=== PATIENT | male | born 1940 | race Caucasian/White ===

== ENCOUNTER 2024-03-22 20:10 | Inpatient (IN) | payer MEDICARE, BC, SELFPAY ==
[2024-03-22 17:42] VITALS: BP 142/75
[2024-03-22 18:07] LABS: % Basophils 0.5 % (0-2); % Eosinophils 2.4 % (0-6); % Immature Granulocytes 0.5 % (0-0.5); % Lymphocytes 11.9 % (20.5-51.1); % Monocytes 9.6 % (1.7-9.3); % Neutrophils 75.1 % (42.2-75.2); Absolute Basophils 0.1 10^3/uL (0-0.2); Absolute Eosinophils 0.3 10^3/uL (0-0.7); Absolute Immature Granulocytes 0.1 10^3/uL (0-0.05); Absolute Lymphocytes 1.3 10^3/uL (1.2-3.4); Absolute Monocytes 1.1 10^3/uL (0.1-0.6); Absolute Neutrophils 8.2 10^3/uL (1.4-6.5); Hematocrit 39.8 % (39.0-52.0); Hemoglobin 14.1 g/dL (13.0-18.0); Mean Corp Hgb Conc. 35.4 g/dL (33.0-37.0); Mean Corpuscular Hgb 30.9 pg (27.0-31.0); Mean Corpuscular Volume 87.1 fL (80.0-94.0); Mean Platelet Volume 11.4 fL (7.4-10.4); Nucleated Red Blood Cells % 0 % (-); Red Blood Cell Count 4.57 10^6/uL (4.70-6.10); Red Cell Dist. Width 12.7 % (11.5-14.5); White Blood Cell Count 10.9 10^3/uL (4.8-10.8)
[2024-03-22 18:15] LABS: ALT (SGPT) 20 U/L (0-50); AST (SGOT) 17 U/L (17-59); Alkaline Phosphatase 56 U/L (38-126); Blood Urea Nitrogen 87 mg/dl (9-20); Calcium 9.3 mg/dl (8.4-10.2); Carbon Dioxide 17 mmol/L (22-30); Chloride 101 mmol/L (98-107); Glucose 121 mg/dl (70-99); Lipase 271 U/L (23-300); Potassium 4.8 mmol/L (3.5-5.1); Sodium 137 mmol/L (135-145); Total Bilirubin 1.2 mg/dl (0.2-1.3); Total Protein 6.5 g/dl (6.3-8.2); eGFR 4.52
[2024-03-22 18:41] VITALS: BP 141/58; BMI 29.2
[2024-03-22 18:46] LABS: Platelet Count 126 10^3/uL (130-400)
--- NOTE | 2024-03-22 18:47 | EDRN ---
this RN entered the pts room and due to tenderness in the b/l lower abdomen this RN bladder scanned the pt for >800, this RN notified Dr. Ashley who gave an order to place an indwelling urinate catheter, the pt was combative and another PCT had to
be brought to the bedside to assist with catheter placement, the pt is resting in stretcher in the lowest position, side rails up x2, call ugalde within reach, HOB elevated, no s/s of distress, VS WNL, will continue to monitor the pt closely
--- NOTE | 2024-03-22 18:49 | EDRN ---
Dr. Ashley currently at the pts bedside and is speaking to the pt and the pts daughter, per Dr. Ashley b/l soft wrist restraints are to be placed
--- NOTE | 2024-03-22 18:49 | EDRN ---
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
--- NOTE | 2024-03-22 18:51 | EDRN ---
b/l soft wrist restraints were placed and are effective, provider notified that they were placed, the pts daughter understands the reasoning for placing b/l soft wrist restraints, charge nurse notified
[2024-03-22 19:00] VITALS: BP 143/61
--- NOTE | 2024-03-22 19:27 | ED.GENMED ---
History of Present Illness
General
Chief Complaint: Male Genito-Urinary Symptoms
Source: family
Time Seen by Provider: 03/22/24 18:38
History of Present Illness
History of Present Illness:
83-year-old male presents to the emergency room due to lack of urinary output. Patient has dementia and so family has difficulty getting information from him. They did note that he was having incontinence of urine that was abnormally colored. No
known fever. Daughter states the patient had blood work recently and was told his kidney function was a little bit off. They do not know any numbers. However it did not seem to be anything serious in the daughter's estimation. Patient unable to
provide any history at this time.
Phy Exam
Physical Exam
Physical Exam:
General: Awake, Alert, Oriented to person only. No acute distress
Vitals: unremarkable
Head: Atraumatic
Eyes: Pupils equal, EOMI
Throat: Airway intact, no exudates
Neck: Trachea midline
Lungs: Clear and equal b/l
Heart: Regular rate, no murmurs
Abd: Soft, suprapubic fullness, No pulsatile mass
Neuro: Nonfocal
Skin: Warm, dry, no rash
Extremities: pulses equal b/l, no edema
Course
Orders/Labs/Results
Orders:
Orders
03/22/24 17:49
CBC/With Diff [Complete Blood Count/With Diff] Urgent
CMP [Comprehensive Metabolic Panel] Urgent
Lipase Urgent
03/22/24 18:39
Farooq Placement- Treatment ONCE
Reason for insertion: Acute Retention
Catheter- Indwelling As Directed
Reason for insertion: Acute Retention
Discontinue Date/Time: 03/25/24 0600
03/22/24 18:49
Restraints - Non Violent As Directed
Justification-Patient:: 1-Attempts to remove tube
Restraint Type-: Soft Limb-L&R Wrist/4rail
Apply From (date): 03/22/24
Apply from (time): 18:49
Remove (date): 03/23/24
Remove (time): 23:59
03/22/24 19:31
Urinalysis Reflex To Culture Urgent
Date Specimen was Collected: 03/22/24
Time Specimen was Collected: 19:29
Urine Microscopic Reflex Cult Urgent
03/22/24 19:51
Abdomen/Pelvis wo Contrast CT [CT Abd/pelvis Wo Iv Cont] Urgent
Comment:
Reason For Exam: urinary retention, hematuria
03/22/24 19:55
Admit/Transfer Patient As Directed
Co-Sign Provider:
Level of Care: Inpatient admission
Assign to:: Medical/Surgical
Physician / Group: jossie
Diagnosis: postobstructie uropathy
Reason for Hospitalization: postobstructie uropathy
Expected length of stay greater than two midnights?: Yes
ELOS- Estimated Length of Stay in days: 2
I certify the patient meets the requirements for IP care: Yes
PRN Pain Medication Management As Directed
May give lesser potent ordered pain med per pt: Yes
preference::
Protocol:: Medication orders for pain may be administered in a
manner that supports deferring to patient preference
when the pt is:
- Requesting an ordered lesser potent pain medication.
Least to most potent pain medications are defined
as: acetaminophen < NSAID < tramadol < opioids
(morphine, oxycodone, hydromorphone).
- Requesting a lesser dose of the same medication IF
ORDERED.
- Requesting a less intrusive route of administration
if both routes are prescribed by the provider (PO <
IV).
03/22/24 19:56
Code Status As Directed
Resuscitation Status: Full Code
Abnormal Lab Results
03/22/24 03/22/24
17:49 19:31
WBC 10.9 H 10^3/uL
(4.8-10.8)
RBC 4.57 L 10^6/uL
(4.70-6.10)
Plt Count 126 L 10^3/uL
(130-400)
MPV 11.4 H fL
(7.4-10.4)
Abs Immat Gran (auto) 0.1 H 10^3/uL
(0-0.05)
Absolute Neuts (auto) 8.2 H 10^3/uL
(1.4-6.5)
Absolute Monos (auto) 1.1 H 10^3/uL
(0.1-0.6)
Lymphocytes % 11.9 L %
(20.5-51.1)
Monocytes % 9.6 H %
(1.7-9.3)
Carbon Dioxide 17 L mmol/L
(22-30)
BUN 87 H mg/dl
(9-20)
Creatinine 10.4 H* mg/dL
(0.7-1.3)
Glucose 121 H mg/dl
(70-99)
Urine Ketones Trace A
(Negative)
Ur Occult Blood Reflex 3+ A
(Negative)
Urine Bilirubin 1+ A
(Negative)
Leukocyte Esterase Rfl Trace A
(Negative)
Urine RBC 16-20 A /HPF
(0-2)
03/22/24 17:49
03/22/24 17:49
Vital Signs
Initial and Last Documented VS:
Initial Vital Signs
Temp Pulse Resp BP Pulse Ox
97.6 F 75 18 142/75 96
03/22/24 17:42 03/22/24 17:42 03/22/24 17:42 03/22/24 17:42 03/22/24 17:42
Last Documented Vital Signs
Temp Pulse Resp BP Pulse Ox
98.5 F 71 16 141/58 99
03/22/24 18:41 03/22/24 18:45 03/22/24 18:45 03/22/24 18:41 03/22/24 18:45
MDM/Problems Addressed
Differential Diagnosis Includes:
bladder outlet obstruction, uti, kidney stone
MDM/Problems Addressed:
Bladder scan showed significant urinary retention. A Farooq catheter was placed with the return of 1000 cc of blood-tinged urine. Patient's labs show a white count of 10.9. He is creatinine is 10.4. BUN 87. Fortunately his potassium is normal at
4.8. His bicarb is mildly low at 17 with an anion gap of 19. I suspect now that his bladder outlet obstruction has been alleviated the patient's renal function will likely improve. He will require hospitalization to monitor for this. Patient
does have dementia and is attempting to pull out his catheter. Will place soft restraints to prevent this. Daughter also states is about time for his Seroquel which typically makes him sleep through the night.
*Pulse Oximetry
Patient hypoxic: no
*Critical Care Note
Total Time (30-74mins, 75-104mins- exclusive of procedures): Not Applicable
ED Attending Note
-
Portions of this chart may have been created with voice recognition software.� Occasional wrong word or��sound alike� substitutions may have occurred due to the inherent limitations of voice recognition software.
Discharge Plan
Departure
Patient Disposition: Admit
Date of Disposition: 03/22/24
Time of Disposition: 19:33
Admit to: Med/Surg
Presentation/result/management discussed w/ accepting MD/DO: Hospitalist
Condition: Fair
Discharge Problem:
Bladder outlet obstruction, Acute renal failure (ARF)
Prescriptions:
No Action
quetiapine 100 mg Tablet
100 mg PO QPM
lorazepam 0.5 mg Tablet
0.5 mg PO DAILYPRN PRN (Reason: anxiety)
Interventions
Interventions:
*Risk Screen - Suicide Last Done: 03/22/24 18:41
*General Assessment Last Done: 03/22/24 18:41
*Neglect/Abuse Screening Last Done: 03/22/24 18:41
ED- Fall Risk Assessment Last Done: 03/22/24 18:41
*ED COVID-19 Vaccine History Last Done: 03/22/24 18:41
II-Bukpit-Sizyueyewf Assessment Last Done: 03/22/24 18:41
ED-Male Genitourinary Assessment Last Done: 03/22/24 18:41
Discharge Date and Time
Print Language: PERSIAN
[2024-03-22 19:38] LABS: Urine Albumin Trace (Neg - Trace); Urine Bilirubin 1+ (Negative); Urine Character Clear (Clear); Urine Color Amber; Urine Glucose Negative (Negative); Urine Ketone Trace (Negative); Urine Leukocyte Trace (Negative); Urine Nitrite Negative (Negative); Urine Occult Blood 3+ (Negative); Urine Urobilinogen Negative (Neg - 1+)
[2024-03-22 19:49] LABS: Urine Red Blood Cell 16-20 /HPF (0-2)
--- NOTE | 2024-03-22 19:52 | HPS.HSE ---
Family Physician
-
Family Physician: PHYSICIAN PRIVATE
Chief Complaint
-
inability to urinate
History of Present Illness
83-year-old male past medical history of aortic valve replacement 7 years ago, dementia, hypertension, hypercholesterolemia, presenting with weakness, worsening confusion, incontinence and inability to urinate today. History is obtained from
daughter because patient has severe dementia.
Patient was complaining of abdominal pain and has had decreased urinary output today. No nausea or vomiting. No fevers or chills.
Patient was previously living in [place] with a visiting nurse but due to worsening cognitive decline he has come to live with his daughter here. Daughter is considering hospice and placement to nursing homes.
He had blood work this past December which showed elevated creatinine.
Patient does see an outpatient urologist yearly for erectile dysfunction although daughter does not know any further details. No history of kidney stones.
Patient was drinking alcohol most days but he has not had any alcohol to drink in 1 week. No smoking or drug use.
Patient's brother had colon cancer.
Medical History
Past Medical History
Past Medical History: Reports Other (aortic valve replacement 7 years ago, dementia, hypertension, hypercholesterolemia)
Past Surgical History: Reports Other (AVR )
Social History
Tobacco: Non-smoker
Alcohol: Occasional
Drug: None
Family History
Family History: Other (brother had colon cancer.)
Allergies / Home Medications
Allergies reflects when Allergies were last updated in [employer].
Home Medications with original date entered in [employer]
Allergy/Medication List:
Allergies
Allergy/AdvReac Type Severity Reaction Status Date / Time
No Known Allergies Allergy Verified 03/22/24 17:45
Review of Systems
-
History Source: Patient
A 12 point ROS was completed and negative except as noted: Yes
Constitutional: Reports No Symptoms
EENT: Reports No Symptoms
Respiratory: Reports No Symptoms
Cardiac: Reports No Symptoms
Abdomen/GI: Reports See HPI
: Reports See HPI
Musculoskeletal: Reports No Symptoms
Skin: Reports No Symptoms
Neurological: Reports No Symptoms
Endocrine: Reports No Symptoms
Hematologic/Lymphatic: Reports No Symptoms
Psych: Reports No Symptoms
Physical Exam
Vital Signs
Vital Signs
Temp Pulse Resp BP Pulse Ox
98.5 F 71 16 141/58 99
03/22/24 18:41 03/22/24 18:45 03/22/24 18:45 03/22/24 18:41 03/22/24 18:45
Physical Exam
General: Well Developed, Well Nourished and No Apparent Distress
HEENT: NormoCephalic, Moist mucous membranes and Atraumatic
Respiratory: Clear
Cardiac: S1/S2 and Regular Rhythm; No Murmur or Rub
GI: Soft, Non Tender, Non Distended and Normal Bowel Sounds; No Organomegaly
Rectal: Deferred by Provider
Musculoskeletal: No Clubbing, No Cyanosis and No Edema
Skin: No Rash
Neuro: Nonfocal/grossly intact
Laboratory Results
-
03/22/24 17:49
03/22/24 17:49
Laboratory Results
Total Bilirubin 1.2 mg/dl (0.2-1.3) 03/22/24 17:49
AST 17 U/L (17-59) 03/22/24 17:49
ALT 20 U/L (0-50) 03/22/24 17:49
Alkaline Phosphatase 56 U/L (38-126) 03/22/24 17:49
Lipase 271 U/L (23-300) 03/22/24 17:49
Data Reviewed
-
Lab Data: Labs Reviewed by me
Old Records: Reviewed
Impression/Plan
-
IMPRESSION:
PLAN:
# Postobstructive DIANN with hematuria secondary to bladder outlet obstruction
# Uremic encephalopathy
-Farooq placed with 1000 cc of bloody urine
-Creatinine of 10.4
-IV fluids with LR as per nephro
-Urinalysis not suggesting UTI
-Check CT abdomen pelvis
History of aortic valve replacement
Dementia with agitation
-Continue Seroquel
-Patient with soft restraints
Essential hypertension
Hypercholesterolemia
DNR/DNI
DVT prophylaxis�SCDs
Regular diet
[2024-03-22 21:01] VITALS: BP 143/61
[2024-03-22 21:32] VITALS: BP 146/70
[2024-03-22] MEDS: LR 1000 IV (21:55)
[2024-03-22] MEDS: NSS (PRESERVATIVE FREE) 0.25 ML IV (22:31)
[2024-03-22] MEDS: ATIVAN 0.5 MG IV (22:32)
--- NOTE | 2024-03-23 01:33 | PTCARENOTE ---
Patient admitted to floor with order for B/L soft wrist restraints & 4 bed rails. Daughter and son-in-law at bedside. Patient responds to name and able to state partial (not year). Patient is agitated and very restless. Daughter requests to stay
at bedside overnight. Farooq placed in ED for acute retention. No signs of hematuria at this time. Will continue to monitor. Completed admission with daughter. Patient is a DNR. Daughter provided copy of health care surrogate and RN printed for
chart. Notified Disha Gore [employer]. Also patient drinks 3-4 times daily; however last drink was Monday03/16/24. MSAS intervention was added q1h per protocol. Notified [employer] again. Discontinued intervention and will continue to monitor for any signs of
withdrawal and/or DT.
[2024-03-23] MEDS: HALDOL 1 MG IM ×2 (04:07→20:49)
[2024-03-23] MEDS: LR 1000 IV ×2 (06:09→15:03)
[2024-03-23 07:00] VITALS: BP 145/69
[2024-03-23 07:43] LABS: ALT (SGPT) 17 U/L (0-50); AST (SGOT) 17 U/L (17-59); Albumin 3.3 g/dl (3.5-5.0); Alkaline Phosphatase 49 U/L (38-126); Blood Urea Nitrogen 55 mg/dl (9-20); Calcium 9.1 mg/dl (8.4-10.2); Carbon Dioxide 22 mmol/L (22-30); Chloride 107 mmol/L (98-107); Estimated Creatinine Clearance 17 ml/min; Glucose 101 mg/dl (70-99); Potassium 4.1 mmol/L (3.5-5.1); Sodium 141 mmol/L (135-145); Total Bilirubin 1.2 mg/dl (0.2-1.3); Total Protein 5.7 g/dl (6.3-8.2)
[2024-03-23 07:51] LABS: % Basophils 0.6 % (0-2); % Eosinophils 3.5 % (0-6); % Immature Granulocytes 0.4 % (0-0.5); % Lymphocytes 14.5 % (20.5-51.1); % Monocytes 11.4 % (1.7-9.3); % Neutrophils 69.6 % (42.2-75.2); Absolute Eosinophils 0.3 10^3/uL (0-0.7); Absolute Monocytes 0.8 10^3/uL (0.1-0.6); Hematocrit 36.2 % (39.0-52.0); Hemoglobin 12.8 g/dL (13.0-18.0); Mean Corp Hgb Conc. 35.4 g/dL (33.0-37.0); Mean Corpuscular Hgb 30.9 pg (27.0-31.0); Mean Corpuscular Volume 87.4 fL (80.0-94.0); Mean Platelet Volume 11.4 fL (7.4-10.4); Nucleated Red Blood Cells % 0 % (-); Platelet Count 116 10^3/uL (130-400); Red Blood Cell Count 4.14 10^6/uL (4.70-6.10); Red Cell Dist. Width 12.4 % (11.5-14.5); White Blood Cell Count 7.2 10^3/uL (4.8-10.8)
--- NOTE | 2024-03-23 09:11 | W.PN.HOSP.TC ---
Today's Communication/Plan
-
see A/P
Assessment / Plan
Assessment / Plan
HPI: 83-year-old male past medical history of aortic valve replacement 7 years ago, dementia, hypertension, hypercholesterolemia, p/w weakness, worsening confusion, incontinence and inability to urinate. History was obtained from daughter because
patient has severe dementia.
Patient was complaining of abdominal pain and has had decreased urinary output.
Patient was previously living in [place] with a visiting nurse but due to worsening cognitive decline, he has come to live with his daughter here. Daughter is considering hospice and placement to nursing homes.
He had blood work this past December which showed elevated creatinine.
Patient does see an outpatient urologist yearly for erectile dysfunction although daughter does not know any further details. No history of kidney stones.
Patient was drinking alcohol most days but he has not had any alcohol to drink in 1 week. No smoking or drug use.
CT AP:
2 nephroliths within the left kidney. No evidence for ureteral calculus bilaterally.
Jasso catheter is present within a collapsed bladder. There is enlargement of the prostate gland extending into the base of the bladder.
Mild to moderate prominence of the calyces, renal pelves, and ureters bilaterally, with no evidence for ureteral calculus. This may possibly be due to the enlarged prostate gland, and could be a chronic finding.
Cholelithiasis. No CT findings to suggest acute cholecystitis.
Mild fatty infiltration of the liver.
Mild splenomegaly.
8 mm mass arising in the left adrenal gland, most likely an adenoma. In an 83-year-old, no further imaging follow-up is felt to be needed.
Colonic diverticula with no CT evidence for diverticulitis.
A/P:
# Postobstructive DIANN with hematuria secondary to severe bladder outlet obstruction from BPH
# Uremic encephalopathy
Cont Jasso which was placed on admission
SCr improved from 10.4 on admission to 3.4 today, baseline 1.3 from November 2023; cont to monitor SCr
Cont IV fluids with LR to ameliorate postobstructive diuresis
Add Flomax , Proscar
Urinalysis not suggesting UTI
CT abdomen pelvis report as above
For now, pt would need to keep jasso (family is concerned that pt would not be able to keep jasso due to his severe dementia) unless family elect hospice route
Uro CS
# History of aortic valve replacement
# Severe Dementia with agitation
Continue BAND SPLITTER Seroquel HS, BAND SPLITTER Ativan PRN
Haldol PRN for severe agitation
Cont soft restraints
# Essential hypertension
BP acceptable , not on BP med at home
# Hypercholesterolemia
DNR/DNI
DVT prophylaxis�SCDs
Regular diet
DW daughter at NATHAN at bedside. Extensive discussion including GOC.
total time spent 51 min
Anticipated Discharge: 24 - 48 hours
Subjective/Interval History
-
Date of Service: March 23, 2024
Objective Data
-
Labs:
Laboratory Results
03/23/24
06:28
WBC 7.2
Hgb 12.8 L
Hct 36.2 L
Plt Count 116 L
Sodium 141
Potassium 4.1
Chloride 107
Carbon Dioxide 22
BUN 55 H
Creatinine 3.4 H
Glucose 101 H
Calcium 9.1
Total Bilirubin 1.2
AST 17
ALT 17
Alkaline Phosphatase 49
Vital Signs:
Vital Signs
Temp Pulse Resp BP Pulse Ox
36.6 C 69 18 145/69 97
03/23/24 07:00 03/23/24 07:00 03/23/24 07:00 03/23/24 07:00 03/23/24 07:00
I&O
03/22/24 03/23/24 03/24/24
06:59 06:59 06:59
Output Total 2375 / 2375 1000 / 1000
Balance -2375 / -2375 -1000 / -1000
Review of Systems
-
Unable to obtain full review of systems at this time due to: Dementia
Physical Exam
-
General: Well Developed, Well Nourished, No Apparent Distress and Comfortable; Negative Respiratory Distress
HEENT: Normocephalic, Atraumatic, Nose Appears Normal and Ears Appear Normal; Negative Oxygen
Respiratory: Clear to Auscultation and Non Labored Respirations; Negative Accessory Resp Muscle Use
Cardiac: Regular Rhythm and S1/S2
GI: Soft, Nontender, Nondistended and Normal Bowel Sounds
Genito-urinary: Jasso
Skin: Warm and Dry
Neuro: Awake and Alert
Psych: Calm and Apparent Dementia
Data Reviewed
-
CT Scan: Report Reviewed by me
Labs: Labs Reviewed by me
--- NOTE | 2024-03-23 10:00 | PTCARENOTE ---
Family at bedside, but not assisting patient with breakfast. RN set up and assisted patient with breakfast. Patient needs frequent cues. Patient ate 100% of meal and was quite pleasant and cooperative.
[2024-03-23] MEDS: FLOMAX 0.4 MG PO (10:06)
[2024-03-23] MEDS: PROSCAR 5 MG PO (10:06)
--- NOTE | 2024-03-23 11:23 | CONS.URO ---
Consultation
-
Date/Time Consultation Performed: 03/23/24 1100
Performing Provider: Wilbert
Reason for Consultation: BPH with AUR and Obstructive Nephropathy
Medical History
History of Present Illness
Elderly male presented to ED with worsening confusion and weakness as well as inability to void; Farooq placed in ED for ~ 1 L
Past Medical History
Past Medical History: Other (Dementia, aortic valve replacement 7 years ago, hypertension, hypercholesterolemia)
Social History
Unable to obtain full social history at this time due to: Dementia
Tobacco: Non-smoker
Living: With Family
Employment: Not Employed
Family History
Family History: Reviewed & Not Pertinent
Allergies/Home Medications
Allergies
Allergy/AdvReac Type Severity Reaction Status Date / Time
No Known Allergies Allergy Verified 03/22/24 17:45
Home Medications
�Medication �Instructions �Recorded �Confirmed �Type
lorazepam 0.5 mg tablet 0.5 mg PO DAILYPRN PRN anxiety 03/22/24 03/22/24 History
quetiapine 100 mg tablet 100 mg PO QPM 03/22/24 03/22/24 History
Physical Exam
Vital Signs
Vital Signs
Temp Pulse Resp BP Pulse Ox
97.9 F 69 18 145/69 97
03/23/24 07:00 03/23/24 07:00 03/23/24 07:00 03/23/24 07:00 03/23/24 07:00
Lab / Testing Results
Laboratory Results
03/23/24 06:28
03/23/24 06:28
Physical Exam
adult male in bed being spoon fed
awake but not conversant
General: No Apparent Distress
Genito-urinary: Farooq Catheter (ania urine)
Data Reviewed
-
CT Scan: Image personally visualized and interpreted
Lab Data: Labs Reviewed
Old Records: Reviewed
--- NOTE | 2024-03-23 11:28 | CONS.URO ---
Consultation
-
Date/Time Consultation Performed: 03/23/24 11 AM
Medical History
History of Present Illness
presented to ED with confusion, weakness and inability to void
Farooq placed in ED for ~ 1 L
Past Medical History
Past Medical History: Other (aortic valve replacement 7 years ago, dementia, hypertension, hypercholesterolemia)
Social History
Unable to obtain full social history at this time due to: Dementia
Living: With Family
Employment: Not Employed
Family History
Family History: Reviewed & Not Pertinent
Allergies/Home Medications
Allergies
Allergy/AdvReac Type Severity Reaction Status Date / Time
No Known Allergies Allergy Verified 03/22/24 17:45
Home Medications
�Medication �Instructions �Recorded �Confirmed �Type
lorazepam 0.5 mg tablet 0.5 mg PO DAILYPRN PRN anxiety 03/22/24 03/22/24 History
quetiapine 100 mg tablet 100 mg PO QPM 03/22/24 03/22/24 History
Physical Exam
Vital Signs
Vital Signs
Temp Pulse Resp BP Pulse Ox
97.9 F 69 18 145/69 97
03/23/24 07:00 03/23/24 07:00 03/23/24 07:00 03/23/24 07:00 03/23/24 07:00
Lab / Testing Results
Laboratory Results
03/23/24 06:28
03/23/24 06:28
Physical Exam
elderly male being spoon fed
General: No Apparent Distress
GI: Non Distended
Genito-urinary: Farooq Catheter (ania urine)
Assessment / Plan
-
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
d/w son-in-law at bedside
Rec:
keep Farooq
Finasteride
possible TURP in several weeks
Data Reviewed
-
CT Scan: Image personally visualized and interpreted
Lab Data: Labs Reviewed
Old Records: Reviewed
--- NOTE | 2024-03-23 12:28 | CM ---
Patient seen bedside with son in law, Bruno, initial assessment completed by Bruno, patient not responding to assessment questions. Bruno reports patient does not typically use any device or DME at home, denies VN or SNF history. Unsure of patients
PCP, patients daughter will know and is coming to Hospital shortly. Patient pharmacy [facility], confirms prescription coverage.
CM spoke with Bruno in the hallway, Bruno reports patient is currently staying with himself and his (patients daughter, Jes Pollock) until . Bruno reports patients caregiver is on vacation so patient is staying with them. Bruno reports
patient comes to [place] in the [place], patients other daughter and family live in the front of the home, patient resides in the back of the home. Bruno reports patient lives in [place] when not visiting, caregiver lives with patient in [place], came
with patient to [place] for summer. Bruno reports family has been looking into Memory Care in [place] for when patient eventually returns. Bruno reports patient is verbal with family. TT to Hospitalist for PT/OT orders. CM will continue to follow for all
discharge planning needs.
Plan; will depend on PT/OT evals, medical treatment in hospital.
[2024-03-23 15:00] VITALS: BP 151/69
--- NOTE | 2024-03-23 16:15 | PTCARENOTE ---
Patient OOB in chair with soft limb restraints maintained. Patient becoming agitated and taking off restraints with his teeth and cursing at his daughter. Daughter was taking pictures and video of patient. Physician made aware, order obtained to
give 1800 Seroquel now.
[2024-03-23] MEDS: SEROQUEL 100 MG PO (16:35)
--- NOTE | 2024-03-23 17:00 | PTCARENOTE ---
Patient assisted back to bed with assist x3, due to patient being uncooperative and combative. Patient back in bed, restraints re applied, bed alarm maintained. Daughter at bedside and expressing he should be placed on hospice due to his confusion
and behavior. Patient's daughter asked RN multiple times for opinion on whether patient should be on hospice. RN explained that patient is 'sun downing' at present and it might be temporary and RN cannot make decision on whether patient should be on
hospice.
--- NOTE | 2024-03-23 19:05 | PTCARENOTE ---
Patient's daughter requesting Haldol be given to her father. Patient is sleeping at present, RN informed daughter that it would be the evening RN's decision whether the patient will need Haldol overnight. Daughter states, 'He was just awake and
agitated.' RN not comfortable giving Haldol at present as patient is sleeping soundly.
[2024-03-23 23:00] VITALS: BP 141/89
[2024-03-24] MEDS: LR 1000 IV ×2 (00:31→08:34)
[2024-03-24 07:20] VITALS: BP 149/73
[2024-03-24 08:30] LABS: Blood Urea Nitrogen 21 mg/dl (9-20); Calcium 8.6 mg/dl (8.4-10.2); Carbon Dioxide 27 mmol/L (22-30); Chloride 107 mmol/L (98-107); Estimated Creatinine Clearance 59 ml/min; Glucose 109 mg/dl (70-99); Magnesium 1.5 mg/dl (1.6-2.3); Potassium 4.1 mmol/L (3.5-5.1); Sodium 142 mmol/L (135-145); eGFR > 60.00
[2024-03-24] MEDS: PROSCAR 5 MG PO (08:30)
[2024-03-24] MEDS: FLOMAX 0.4 MG PO (08:30)
[2024-03-24 08:37] LABS: Hematocrit 34.8 % (39.0-52.0); Hemoglobin 12.6 g/dL (13.0-18.0); Mean Corp Hgb Conc. 36.2 g/dL (33.0-37.0); Mean Corpuscular Hgb 31.3 pg (27.0-31.0); Mean Corpuscular Volume 86.4 fL (80.0-94.0); Mean Platelet Volume 11.4 fL (7.4-10.4); Platelet Count 121 10^3/uL (130-400); Red Blood Cell Count 4.03 10^6/uL (4.70-6.10); Red Cell Dist. Width 12.2 % (11.5-14.5); White Blood Cell Count 6.1 10^3/uL (4.8-10.8)
--- NOTE | 2024-03-24 09:08 | W.PN.HOSP.TC ---
Today's Communication/Plan
-
see A/P
Assessment / Plan
Assessment / Plan
HPI: 83-year-old male past medical history of aortic valve replacement 7 years ago, dementia, hypertension, hypercholesterolemia, p/w weakness, worsening confusion, incontinence and inability to urinate. History was obtained from daughter because
patient has severe dementia.
Patient was complaining of abdominal pain and has had decreased urinary output.
Patient was previously living in [place] with a visiting nurse but due to worsening cognitive decline, he has come to live with his daughter here. Daughter is considering hospice and placement to nursing homes.
He had blood work this past December which showed elevated creatinine.
Patient does see an outpatient urologist yearly for erectile dysfunction although daughter does not know any further details. No history of kidney stones.
Patient was drinking alcohol most days but he has not had any alcohol to drink in 1 week. No smoking or drug use.
CT AP:
2 nephroliths within the left kidney. No evidence for ureteral calculus bilaterally.
Jasso catheter is present within a collapsed bladder. There is enlargement of the prostate gland extending into the base of the bladder.
Mild to moderate prominence of the calyces, renal pelves, and ureters bilaterally, with no evidence for ureteral calculus. This may possibly be due to the enlarged prostate gland, and could be a chronic finding.
Cholelithiasis. No CT findings to suggest acute cholecystitis.
Mild fatty infiltration of the liver.
Mild splenomegaly.
8 mm mass arising in the left adrenal gland, most likely an adenoma. In an 83-year-old, no further imaging follow-up is felt to be needed.
Colonic diverticula with no CT evidence for diverticulitis.
A/P:
# Postobstructive DIANN with hematuria secondary to severe bladder outlet obstruction from BPH
# Uremic encephalopathy
Cont Jasso which was placed on admission
SCr improved from 10.4 on admission to 1.0 today; baseline SCr 1.3 from November 2023
cont to monitor SCr
s/p IV fluid
Added Flomax , Proscar
Urinalysis not suggesting UTI
CT abdomen pelvis report as above
For now, would highly recc pt to keep jasso (family has concern that pt would not be able to keep jasso due to his severe dementia).
GOC discussed and family considering hospice. Hospice CS.
Appreciate Uro input, agree with jasso
# Hypomagnesemia
replete with IV Mag
# History of aortic valve replacement
# Severe Dementia with agitation
Pt is awake but not orientated
Continue DISPLAY MAKER Seroquel HS, DISPLAY MAKER Ativan PRN
IM Haldol PRN for severe agitation (daughter prefers Haldol over Ativan)
soft restraints as needed
# Essential hypertension
BP acceptable , not on BP med at home
# Hypercholesterolemia
DNR/DNI
DVT prophylaxis�SCDs
Regular diet
DW daughters and NATHAN in person. Extensive discussion involving GOC.
Family would like hospice eval. Hospice CS placed.
Anticipated Discharge: > 48 hours
Subjective/Interval History
-
Date of Service: March 24, 2024
Objective Data
-
Labs:
Laboratory Results
03/24/24
07:34
WBC 6.1
Hgb 12.6 L
Hct 34.8 L
Plt Count 121 L
Sodium 142
Potassium 4.1
Chloride 107
Carbon Dioxide 27
BUN 21 H
Creatinine 1.0
Glucose 109 H
Calcium 8.6
Vital Signs:
Vital Signs
Temp Pulse Resp BP Pulse Ox
36.8 C 66 14 149/73 98
03/24/24 07:20 03/24/24 07:20 03/24/24 07:20 03/24/24 07:20 03/24/24 07:20
I&O
03/23/24 03/24/24 03/25/24
06:59 06:59 06:59
Intake Total 1380 / 1380 1440 / 1440
Output Total 2375 / 2375 3000 / 3000 1575 / 1575
Balance -2375 / -2375 -1620 / -1620 -135 / -135
Review of Systems
-
Unable to obtain full review of systems at this time due to: Dementia
Physical Exam
-
General: Well Developed, Well Nourished, No Apparent Distress and Comfortable; Negative Respiratory Distress
HEENT: Normocephalic, Atraumatic, Nose Appears Normal and Ears Appear Normal; Negative Oxygen
Respiratory: Clear to Auscultation and Non Labored Respirations; Negative Accessory Resp Muscle Use
Cardiac: Regular Rhythm and S1/S2
GI: Soft, Nontender, Nondistended and Normal Bowel Sounds
Genito-urinary: Jasso
Skin: Warm and Dry
Neuro: Awake and Alert
Psych: Calm and Apparent Dementia
Data Reviewed
-
CT Scan: Report Reviewed by me
Labs: Labs Reviewed by me
[2024-03-24] MEDS: MAGNESIUM SULFATE 50 IV (09:49)
--- NOTE | 2024-03-24 11:41 | HOSPNOTE ---
Called the patients daughter to speak to her about Hospice services. No answer. Phone number was given for a return call.
--- NOTE | 2024-03-24 12:15 | PTCARENOTE ---
At noon pt is very agitated, tries to pull his Farooq catheter regardless of being in bilateral upper wrist restraints, pt is still able to reach the Farooq. IM Haldol administered. No immediate effect, but after about 2hrs pt is pleasant and resting
in bed peacefully. Will continue to monitor.
[2024-03-24] MEDS: HALDOL 1 MG IM (12:19)
--- NOTE | 2024-03-24 12:46 | HOSPNOTE ---
Spoke with the patients adult children via phone. Hospice philosophy and services were explained. They were informed that the patient does not meet GIP criteria at this time. They state he may return to his [facility] [place]. They are
agreeable to meeting with the liaison planner monday.
--- NOTE | 2024-03-24 13:05 | W.PN.URO.CBU ---
Today's Communication / Plan
-
Rec:
keep Farooq
Finasteride
possible TURP in several weeks
Assessment / Plan
-
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
Diagnosis
-
Date of Service: March 24, 2024
-
Patient Diagnosis:
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
Objective
-
Vital Signs
Temp Pulse Resp BP Pulse Ox
98.3 F 66 14 149/73 98
03/24/24 07:20 03/24/24 07:20 03/24/24 07:20 03/24/24 07:20 03/24/24 07:20
Intake and Output
03/23/24 03/24/24 03/25/24
06:59 06:59 06:59
Intake Total 1380 / 1380 1440 / 1440
Output Total 2375 / 2375 3000 / 3000 1575 / 1575
Balance -2375 / -2375 -1620 / -1620 -135 / -135
Intake:
Oral fluids 580 / 580 120 / 120
IV fluids (Total) 800 / 800 1320 / 1320
Output:
Urine, Farooq 575 / 575 3000 / 3000 1575 / 1575
Urine, Voided 1800 / 1800
Laboratory Results
03/24/24 07:34
03/24/24 07:34
Physical Exam
-
General - well developed, well nourished, no acute distress
Chest - clear bilaterally
Abdomen - soft, non-tender, positive bowel sounds, no CVAT, no incisional pain or distention
Genitalia - normal
Rectal - normal
Skin - warm & dry with no rash
Neuro - AOx3, no motor deficits
Extremities - no clubbing, no cyanosis, no edema
Incision - clean, dry
Dressing - clean, dry, intact
--- NOTE | 2024-03-24 14:14 | W.PN.UPDATE ---
Update Note
Progress Note Update
Extensive discussion with family in person.
Family would like the Farooq out given it is causing severe agitation to the patient, and family is concerned that the patient will traumatically remove the Farooq once his restraint is removed (understandable).
Hospice was consulted given patient would likely develop uremic encephalopathy and kidney failure if Farooq is removed.
Hospice nurse discussed case with Dr Farrell. Per Dr Farrell, pt does not meet criteria for GIP currently.
At this point, could consider starting comfort measures when Farooq is removed (as requested by family).
Family is aware that once Farooq is removed, patient's urinary retention will result in severe acute kidney injury and uremic encephalopathy. This will result in .
Family will inform the hospitalist team when they are ready to have the Farooq removed.
When that happens, would consider initiating comfort measures.
[2024-03-24 15:05] VITALS: BP 151/80
[2024-03-24] MEDS: SEROQUEL 100 MG PO (17:01)
[2024-03-24] MEDS: TYLENOL 650 MG PO (19:44)
[2024-03-24 23:04] VITALS: BP 126/66
[2024-03-25] MEDS: HALDOL 1 MG IM ×2 (03:21→10:07)
[2024-03-25 07:00] VITALS: BP 127/76
[2024-03-25 08:02] LABS: Hematocrit 36.8 % (39.0-52.0); Hemoglobin 13.1 g/dL (13.0-18.0); Mean Corp Hgb Conc. 35.6 g/dL (33.0-37.0); Mean Corpuscular Hgb 30.6 pg (27.0-31.0); Mean Platelet Volume 10.8 fL (7.4-10.4); Platelet Count 142 10^3/uL (130-400); Red Blood Cell Count 4.28 10^6/uL (4.70-6.10); White Blood Cell Count 6.4 10^3/uL (4.8-10.8)
[2024-03-25] MEDS: PROSCAR 5 MG PO (08:14)
[2024-03-25] MEDS: FLOMAX 0.4 MG PO (08:14)
[2024-03-25 08:38] LABS: Blood Urea Nitrogen 15 mg/dl (9-20); Carbon Dioxide 25 mmol/L (22-30); Chloride 106 mmol/L (98-107); Estimated Creatinine Clearance 65 ml/min; Glucose 107 mg/dl (70-99); Magnesium 1.8 mg/dl (1.6-2.3); Sodium 141 mmol/L (135-145); eGFR > 60.00
--- NOTE | 2024-03-25 09:21 | CHAP ---
Addendum entered by Rhina Celestin 03/25/24 09:31:
Fr. Valdes anticipates arriving around 11am today.
Original Note:
Teletypesetter Operator request relayed at family's request. Awaiting return call.
--- NOTE | 2024-03-25 11:34 | W.PN.HOSP.TC ---
Today's Communication/Plan
-
Await hospice discussion with family. Case management aware.
Assessment / Plan
Assessment / Plan
HPI: 83-year-old male past medical history of aortic valve replacement 7 years ago, dementia, hypertension, hypercholesterolemia, p/w weakness, worsening confusion, incontinence and inability to urinate. History was obtained from daughter because
patient has severe dementia.
Patient was complaining of abdominal pain and has had decreased urinary output.
Patient was previously living in [place] with a visiting nurse but due to worsening cognitive decline, he has come to live with his daughter here. Daughter is considering hospice and placement to nursing homes.
He had blood work this past December which showed elevated creatinine.
Patient does see an outpatient urologist yearly for erectile dysfunction although daughter does not know any further details. No history of kidney stones.
Patient was drinking alcohol most days but he has not had any alcohol to drink in 1 week. No smoking or drug use.
CT AP:
2 nephroliths within the left kidney. No evidence for ureteral calculus bilaterally.
Jasso catheter is present within a collapsed bladder. There is enlargement of the prostate gland extending into the base of the bladder.
Mild to moderate prominence of the calyces, renal pelves, and ureters bilaterally, with no evidence for ureteral calculus. This may possibly be due to the enlarged prostate gland, and could be a chronic finding.
Cholelithiasis. No CT findings to suggest acute cholecystitis.
Mild fatty infiltration of the liver.
Mild splenomegaly.
8 mm mass arising in the left adrenal gland, most likely an adenoma. In an 83-year-old, no further imaging follow-up is felt to be needed.
Colonic diverticula with no CT evidence for diverticulitis.
A/P:
# Postobstructive DIANN with hematuria secondary to severe bladder outlet obstruction from BPH
# Uremic encephalopathy
Cont Jasso which was placed on admission
SCr improved from 10.4 on admission to 0.9 today; baseline SCr 1.3 from November 2023
cont to monitor SCr
s/p IV fluid
Added Flomax , Proscar
Urinalysis not suggesting UTI
CT abdomen pelvis report as above
For now, would highly recc pt to keep jasso (family has concern that pt would not be able to keep jasso due to his severe dementia).
GOC discussed and daughter has decided to transition to hospice if possible.
# Hypomagnesemia
replete with IV Mag
# History of aortic valve replacement
# Severe Dementia with agitation
Pt is awake but not orientated
Continue TOBACCO STRIPPER Seroquel HS, TOBACCO STRIPPER Ativan PRN
IM Haldol PRN for severe agitation (daughter prefers Haldol over Ativan)
soft restraints as needed
# Essential hypertension
BP acceptable , not on BP med at home
# Hypercholesterolemia
DNR/DNI
DVT prophylaxis�SCDs
Regular diet
Extensive discussion held with patient and daughter at bedside. Daughter wants Jasso catheter to be removed for comfort measures and pain control as patient states of severe discomfort of penile pain. Daughter understand the poor prognosis with
removal of Jasso catheter leading to increase in serum creatinine and eventually further worsening of renal failure leading to uremia, worsening of confusion as already with history of dementia agitation and eventual . Daughter wants patient
to be transition to comfort measures and wants to talk to hospice as she was a transition patient to hospice.
Await hospice discussion with family. Case management aware.
Anticipated Discharge: Today
Subjective/Interval History
-
Date of Service: March 25, 2024
daughter at bedside
they have decided to transition to hospice and remove jasso catheter
pt states of penile pain
Objective Data
-
Labs:
Laboratory Results
03/25/24
07:09
WBC 6.4
Hgb 13.1
Hct 36.8 L
Plt Count 142
Sodium 141
Potassium 4.0
Chloride 106
Carbon Dioxide 25
BUN 15
Creatinine 0.9
Glucose 107 H
Calcium 9.0
Vital Signs:
Vital Signs
Temp Pulse Resp BP Pulse Ox
97.7 F 92 18 127/76 96
03/25/24 07:00 03/25/24 07:00 03/25/24 07:00 03/25/24 07:00 03/25/24 07:00
I&O
03/24/24 03/25/24 03/26/24
06:59 06:59 06:59
Intake Total 1380 / 1380 1979 / 1979
Output Total 3000 / 3000 3375 / 3375
Balance -1620 / -1620 -1395 / -1395
Physical Exam
-
General: Well Developed, Well Nourished, No Apparent Distress and Comfortable; Negative Respiratory Distress
HEENT: Normocephalic, Atraumatic, Nose Appears Normal and Ears Appear Normal; Negative Oxygen
Respiratory: Clear to Auscultation and Non Labored Respirations; Negative Accessory Resp Muscle Use
Cardiac: Regular Rhythm and S1/S2
GI: Soft, Nontender, Nondistended and Normal Bowel Sounds
Genito-urinary: Jasso
Skin: Warm and Dry
Neuro: Awake
Psych: Calm and Apparent Dementia
[2024-03-25] MEDS: MORPHINE SULFATE 1 MG IV ×2 (12:20→14:20)
--- NOTE | 2024-03-25 13:09 | CHAP ---
Fr. Kyle Valdes of [facility] gave Last Rites to the patient. Time uncertain.
--- NOTE | 2024-03-25 13:35 | HOSPNOTE ---
Spoke with family and discussed care and the philosophy. The patient will remain on comfort and the family would like the patient to remain in the same room and not be moved. The family also does not wish for the jasso catheter to be replaced if
needed. Please do not bladder scan, Attending aware of this request. I will continue to follow daily and help make any adjustments with medications. Case management aware.
[2024-03-25] MEDS: HALDOL 1 MG IV ×2 (13:49→21:25)
--- NOTE | 2024-03-25 14:54 | W.PN.URO.CBU ---
Today's Communication / Plan
-
hospice in consideration
keep Farooq
Assessment / Plan
-
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
Diagnosis
-
Date of Service: March 25, 2024
-
Patient Diagnosis:
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
Objective
-
Vital Signs
Temp Pulse Resp BP Pulse Ox
97.7 F 92 18 127/76 96
03/25/24 07:00 03/25/24 07:00 03/25/24 07:00 03/25/24 07:00 03/25/24 07:00
Intake and Output
03/24/24 03/25/24 03/26/24
06:59 06:59 06:59
Intake Total 1380 / 1380 1980 / 1980
Output Total 3000 / 3000 3375 / 3375
Balance -1620 / -1620 -1395 / -1395
Intake:
Oral fluids 580 / 580 660 / 660
IV fluids (Total) 800 / 800 1320 / 1320
Output:
Urine, Farooq 3000 / 3000 2275 / 2275
Urine, Voided 1100 / 1100
Laboratory Results
03/25/24 07:09
03/25/24 07:09
Physical Exam
-
General - well developed, well nourished, no acute distress
Chest - clear bilaterally
Abdomen - soft, non-tender, positive bowel sounds, no CVAT, no incisional pain or distention
Genitalia - normal
Rectal - normal
Skin - warm & dry with no rash
Neuro - AOx3, no motor deficits
Extremities - no clubbing, no cyanosis, no edema
Incision - clean, dry
Dressing - clean, dry, intact
[2024-03-25 15:00] VITALS: BP 139/79
--- NOTE | 2024-03-25 16:00 | CM ---
Patient seen at bedside with daughter.
Case management consulted for hospice completed.
Patient seen by clinical rehabilitation liaison today.
Does not meet criteria for GIP.
Patient on comfort care.
medical liaison will follow.
PLAN: Continue comfort care follow up in am.
[2024-03-25] MEDS: BENADRYL 25 MG IV (16:06)
[2024-03-25] MEDS: SEROQUEL PO (17:14)
[2024-03-25] MEDS: MORPHINE SULFATE 2 MG IV ×2 (17:37→19:42)
--- NOTE | 2024-03-25 19:30 | PTCARENOTE ---
family at bedside stats they do not want patient to have a jasso and they do not want him to be straight cath. pt had jasso removed in am and has not voided yet. will monitor
[2024-03-25] MEDS: MORPHINE SULFATE 4 MG IV (21:41)
--- NOTE | 2024-03-25 22:56 | PTCARENOTE ---
pt is confused, restless, and combative. attempting to get oob. see mar re: medications w/+eff.
[2024-03-26 00:15] VITALS: BP 146/75
[2024-03-26] MEDS: MORPHINE SULFATE 2 MG IV (05:03)
[2024-03-26 07:00] VITALS: BP 151/76
[2024-03-26] MEDS: MORPHINE SULFATE 4 MG IV ×2 (07:21→11:21)
[2024-03-26] MEDS: HALDOL 1 MG IV ×3 (07:33→17:14)
[2024-03-26] MEDS: PROSCAR PO (07:41)
--- NOTE | 2024-03-26 12:15 | W.PN.HOSP.TC ---
Today's Communication/Plan
-
Continue with comfort measures
Hospice team recs
Assessment / Plan
Assessment / Plan
HPI: 83-year-old male past medical history of aortic valve replacement 7 years ago, dementia, hypertension, hypercholesterolemia, p/w weakness, worsening confusion, incontinence and inability to urinate. History was obtained from daughter because
patient has severe dementia.
Patient was complaining of abdominal pain and has had decreased urinary output.
Patient was previously living in [place] with a visiting nurse but due to worsening cognitive decline, he has come to live with his daughter here. Daughter is considering hospice and placement to nursing homes.
He had blood work this past December which showed elevated creatinine.
Patient does see an outpatient urologist yearly for erectile dysfunction although daughter does not know any further details. No history of kidney stones.
Patient was drinking alcohol most days but he has not had any alcohol to drink in 1 week. No smoking or drug use.
CT AP:
2 nephroliths within the left kidney. No evidence for ureteral calculus bilaterally.
Jasso catheter is present within a collapsed bladder. There is enlargement of the prostate gland extending into the base of the bladder.
Mild to moderate prominence of the calyces, renal pelves, and ureters bilaterally, with no evidence for ureteral calculus. This may possibly be due to the enlarged prostate gland, and could be a chronic finding.
Cholelithiasis. No CT findings to suggest acute cholecystitis.
Mild fatty infiltration of the liver.
Mild splenomegaly.
8 mm mass arising in the left adrenal gland, most likely an adenoma. In an 83-year-old, no further imaging follow-up is felt to be needed.
Colonic diverticula with no CT evidence for diverticulitis.
A/P:
# Postobstructive DIANN with hematuria secondary to severe bladder outlet obstruction from BPH
# Uremic encephalopathy
Cont Jasso which was placed on admission
SCr improved from 10.4 on admission to 0.9 today; baseline SCr 1.3 from November 2023
cont to monitor SCr
s/p IV fluid
Added Flomax , Proscar
Urinalysis not suggesting UTI
CT abdomen pelvis report as above
For now, would highly recc pt to keep jasso (family has concern that pt would not be able to keep jasso due to his severe dementia).
GOC discussed and daughter has decided to transition to hospice if possible.
Discussed with daughter about need for Jasso catheter placement if patient with severe suprapubic discomfort is high risk for severe bladder distention with concern for bladder rupture. Daughter states will discuss among sibling however current
moment does not want Jasso catheter to be placed back.
# Hypomagnesemia
replete with IV Mag
# History of aortic valve replacement
# Severe Dementia with agitation
Pt is awake but not orientated
Continue STOCK CUTTER Seroquel HS, STOCK CUTTER Ativan PRN
IM Haldol PRN for severe agitation (daughter prefers Haldol over Ativan)
soft restraints as needed
Transition to comfort measures
# Essential hypertension
BP acceptable , not on BP med at home
# Hypercholesterolemia
DNR/DNI
DVT prophylaxis�SCDs
Regular diet
Extensive discussion held with patient and daughter at bedside. Daughter wants Jasso catheter to be removed for comfort measures and pain control as patient states of severe discomfort of penile pain. Daughter understand the poor prognosis with
removal of Jasso catheter leading to increase in serum creatinine and eventually further worsening of renal failure leading to uremia, worsening of confusion as already with history of dementia agitation and eventual . Daughter wants patient
to be transition to comfort measures and wants to talk to hospice as she was a transition patient to hospice.
Transitioned to comfort measures. Await further hospice recs.
Anticipated Discharge: > 48 hours
Subjective/Interval History
-
Date of Service: March 26, 2024
in restraints
calm this am
daughter at bedside
Objective Data
-
Vital Signs:
Vital Signs
Temp Pulse Resp BP Pulse Ox
97.8 F 73 18 151/76 99
03/26/24 07:00 03/26/24 07:00 03/26/24 07:00 03/26/24 07:00 03/26/24 07:00
I&O
03/25/24 03/26/24 03/27/24
06:59 06:59 06:59
Intake Total 1979 / 1979 120 / 120
Output Total 3375 / 3375
Balance -1395 / -1395 120 / 120
Physical Exam
-
General: Well Developed, Well Nourished, No Apparent Distress and Comfortable; Negative Respiratory Distress
HEENT: Moist Mucous Membranes, Nose Appears Normal and Ears Appear Normal; Negative Oxygen
Respiratory: Clear to Auscultation and Non Labored Respirations; Negative Accessory Resp Muscle Use
Cardiac: S1/S2
GI: Soft, Nontender, Nondistended and Normal Bowel Sounds
Genito-urinary: Jasso
Skin: Warm and Dry
Psych: Calm and Apparent Dementia
--- NOTE | 2024-03-26 13:01 | CM ---
Patient continues on comfort care.
Family in room earlier with patient.
CM to continue to follow for support/needs.
Discussed care with Diana nurse liaison.
PLAN: Patient continues on comfort care.
[2024-03-26] MEDS: MORPHINE 100 IV (14:32)
--- NOTE | 2024-03-26 15:12 | HOSPNOTE ---
Long meeting with the daughter Rachel at bedside. I explained that we would prefer to start a morphine drip and keep the patient comfortable. I discussed the use of Ativan and the daughter stated that the patient had a reaction in the past and it
seemed to make patient more agitated so we will continue using Haldol. I discussed the placement of a jasso catheter and the reasons why bladder rupture, causing pain, agitation and terminal agitation. The daughters are thinking about it but not in
total agreement. I tried to encourage that we use catheters for comfort and that the patient has over 900ml of urine in his bladder and that this could be causing a lot of the agitation, they disagreed. I will continue to encourage and support and
try to educate.
[2024-03-26] MEDS: ATIVAN 2 MG IV ×3 (15:59→21:04)
[2024-03-26] MEDS: SEROQUEL PO (17:28)
[2024-03-26] MEDS: NSS (PRESERVATIVE FREE) 1 ML IV ×2 (18:45→21:04)
[2024-03-27 00:36] VITALS: BP 96/63
[2024-03-27 07:30] VITALS: BP 115/89
[2024-03-27] MEDS: PROSCAR PO (08:40)
--- NOTE | 2024-03-27 10:21 | W.PN.HOSP.TC ---
Today's Communication/Plan
-
Comfort measure
morphine gtt
Assessment / Plan
Assessment / Plan
HPI: 83-year-old male past medical history of aortic valve replacement 7 years ago, dementia, hypertension, hypercholesterolemia, p/w weakness, worsening confusion, incontinence and inability to urinate. History was obtained from daughter because
patient has severe dementia.
Patient was complaining of abdominal pain and has had decreased urinary output.
Patient was previously living in [place] with a visiting nurse but due to worsening cognitive decline, he has come to live with his daughter here. Daughter is considering hospice and placement to nursing homes.
He had blood work this past December which showed elevated creatinine.
Patient does see an outpatient urologist yearly for erectile dysfunction although daughter does not know any further details. No history of kidney stones.
Patient was drinking alcohol most days but he has not had any alcohol to drink in 1 week. No smoking or drug use.
A/P:
# Severe Dementia with agitation
Pt is awake but not orientated
Continue HOSTESS Seroquel HS, HOSTESS Ativan PRN
IM Haldol PRN for severe agitation (daughter prefers Haldol over Ativan)
soft restraints as needed
Transition to comfort measures-required multiple IV morphine prn and transitioned to morphine gtt. Family agreed
# Postobstructive DIANN with hematuria secondary to severe bladder outlet obstruction from BPH
# Uremic encephalopathy
Cont Jasso which was placed on admission
SCr improved from 10.4 on admission to 0.9 today; baseline SCr 1.3 from November 2023
cont to monitor SCr
s/p IV fluid
Added Flomax , Proscar
Urinalysis not suggesting UTI
CT abdomen pelvis report as above
For now, would highly recc pt to keep jasso (family has concern that pt would not be able to keep jasso due to his severe dementia).
GOC discussed and daughter has decided to transition to hospice if possible.
Discussed with daughter about need for Jasso catheter placement if patient with severe suprapubic discomfort is high risk for severe bladder distention with concern for bladder rupture. Daughter states will discuss among sibling however current
moment does not want Jasso catheter to be placed back.
# Hypomagnesemia
replete with IV Mag
# History of aortic valve replacement
# Essential hypertension
BP acceptable , not on BP med at home
# Hypercholesterolemia
DNR/DNI
DVT prophylaxis�SCDs
Regular diet
Extensive discussion held with patient and daughter at bedside. Daughter wants Jasso catheter to be removed for comfort measures and pain control as patient states of severe discomfort of penile pain. Daughter understand the poor prognosis with
removal of Jasso catheter leading to increase in serum creatinine and eventually further worsening of renal failure leading to uremia, worsening of confusion as already with history of dementia agitation and eventual . Daughter wants patient
to be transition to comfort measures and wants to talk to hospice as she was a transition patient to hospice.
d/w with multiple daughters and other family member at bedside.
Transitioned to comfort measures. Await further hospice recs.
Anticipated Discharge: > 48 hours
Subjective/Interval History
-
Date of Service: March 27, 2024
off restraints
on morphine gtt
calm
Objective Data
-
Vital Signs:
Vital Signs
Temp Pulse Resp BP Pulse Ox
98.0 F 92 16 115/89 91
03/27/24 07:30 03/27/24 07:30 03/27/24 07:30 03/27/24 07:30 03/27/24 07:30
I&O
03/26/24 03/27/24 03/28/24
06:59 06:59 06:59
Intake Total 120 / 120
Output Total 150 / 150
Balance 120 / 120 -138 / -138
Physical Exam
-
General: Well Developed and Comfortable; Negative Respiratory Distress
HEENT: Nose Appears Normal and Ears Appear Normal; Negative Oxygen
Respiratory: Non Labored Respirations; Negative Accessory Resp Muscle Use
Cardiac: S1/S2
GI: Nondistended
Genito-urinary: Jasso
Skin: Warm and Dry
Psych: Calm and Apparent Dementia
--- NOTE | 2024-03-27 12:06 | HOSPNOTE ---
Patient appears much more comfortable with the morphine drip and the use of ativan. Patient is not restrained at this time. Patient still does not have a jasso catheter and family is still refusing even though the patient was bladder scanned
yesterday for 1000ml, today I again discussed how painful a bladder rupture would be and that we use jasso catheters all the time for comfort since full bladders cause pain and irritation family still refuses. I will continue to educate family and
support the nursing staff.
--- NOTE | 2024-03-27 13:29 | CM ---
Patient seen at bedside with family.
Continues on comfort care. IV gtt MSO4, Ativan given last evening.
hospice community liaison visit today.
PLAN: Comfort care.
[2024-03-27] MEDS: ATIVAN 2 MG IV ×2 (14:46→23:26)
[2024-03-27 15:13] VITALS: BP 114/58
[2024-03-27] MEDS: SEROQUEL PO (17:20)
[2024-03-27 23:15] VITALS: BP 102/60
[2024-03-27] MEDS: NSS (PRESERVATIVE FREE) 1 ML IV (23:26)
[2024-03-28] MEDS: NSS (PRESERVATIVE FREE) 1 ML IV ×5 (04:31→22:12)
[2024-03-28] MEDS: ATIVAN 2 MG IV ×6 (04:31→22:12)
[2024-03-28] MEDS: PROSCAR PO (07:27)
[2024-03-28 07:37] VITALS: BP 94/52
[2024-03-28] MEDS: ROBINUL 0.2 MG IV (09:54)
--- NOTE | 2024-03-28 10:06 | W.PN.HOSP.TC ---
Today's Communication/Plan
-
comfort measures
Assessment / Plan
Assessment / Plan
HPI: 83-year-old male past medical history of aortic valve replacement 7 years ago, dementia, hypertension, hypercholesterolemia, p/w weakness, worsening confusion, incontinence and inability to urinate. History was obtained from daughter because
patient has severe dementia.
Patient was complaining of abdominal pain and has had decreased urinary output.
Patient was previously living in [place] with a visiting nurse but due to worsening cognitive decline, he has come to live with his daughter here. Daughter is considering hospice and placement to nursing homes.
He had blood work this past December which showed elevated creatinine.
Patient does see an outpatient urologist yearly for erectile dysfunction although daughter does not know any further details. No history of kidney stones.
Patient was drinking alcohol most days but he has not had any alcohol to drink in 1 week. No smoking or drug use.
A/P:
# Severe Dementia with agitation
Pt is awake but not orientated
Continue ENGRAVER HAND HARD METALS Seroquel HS, ENGRAVER HAND HARD METALS Ativan PRN
IM Haldol PRN for severe agitation (daughter prefers Haldol over Ativan)
soft restraints as needed
Transition to comfort measures-required multiple IV morphine prn and transitioned to morphine gtt. Family agreed
# Postobstructive DIANN with hematuria secondary to severe bladder outlet obstruction from BPH
# Uremic encephalopathy
Cont Jasso which was placed on admission
SCr improved from 10.4 on admission to 0.9 today; baseline SCr 1.3 from November 2023
cont to monitor SCr
s/p IV fluid
Added Flomax , Proscar
Urinalysis not suggesting UTI
CT abdomen pelvis report as above
For now, would highly recc pt to keep jasso (family has concern that pt would not be able to keep jasso due to his severe dementia).
GOC discussed and daughter has decided to transition to hospice if possible.
Discussed with daughter about need for Jasso catheter placement if patient with severe suprapubic discomfort is high risk for severe bladder distention with concern for bladder rupture. Daughter states will discuss among sibling however current
moment does not want Jasso catheter to be placed back.
# Hypomagnesemia
replete/monitor
# History of aortic valve replacement
# Essential hypertension
BP acceptable , not on BP med at home
# Hypercholesterolemia
DNR/DNI
DVT prophylaxis�SCDs
Regular diet
Extensive discussion held with patient and daughter at bedside. Daughter wants Jasso catheter to be removed for comfort measures and pain control as patient states of severe discomfort of penile pain. Daughter understand the poor prognosis with
removal of Jasso catheter leading to increase in serum creatinine and eventually further worsening of renal failure leading to uremia, worsening of confusion as already with history of dementia agitation and eventual . Daughter wants patient
to be transition to comfort measures and wants to talk to hospice as she was a transition patient to hospice.
d/w with multiple daughters and other family member at bedside on daily basis.
Transitioned to comfort measures.
Anticipated Discharge: > 48 hours
Subjective/Interval History
-
Date of Service: March 28, 2024
remains comfortable
intermittently gasping for air
tremors
Objective Data
-
Vital Signs:
Vital Signs
Temp Pulse Resp BP Pulse Ox
98.7 F 59 18 94/52 99
03/28/24 07:37 03/28/24 07:37 03/28/24 07:37 03/28/24 07:37 03/28/24 07:37
I&O
03/27/24 03/28/24 03/29/24
06:59 06:59 06:59
Intake Total
Output Total 150 / 150
Balance -138 / -138
Physical Exam
-
General: Comfortable; Negative Respiratory Distress
HEENT: Nose Appears Normal and Ears Appear Normal; Negative Oxygen
Respiratory: Non Labored Respirations; Negative Accessory Resp Muscle Use
Cardiac: S1/S2
GI: Nondistended
Skin: Warm and Dry
Psych: Calm and Apparent Dementia
[2024-03-28] MEDS: MORPHINE SULFATE 2 MG IV (12:42)
--- NOTE | 2024-03-28 14:43 | CM ---
Patient is on comfort Care, will follow with progress.
Plan; Comfort care.
[2024-03-28 15:24] VITALS: BP 121/63
[2024-03-28] MEDS: SEROQUEL PO (16:40)
[2024-03-28] MEDS: MORPHINE 100 IV (19:13)
[2024-03-28 23:53] VITALS: BP 113/65
[2024-03-29] MEDS: MORPHINE SULFATE 2 MG IV ×5 (00:14→21:58)
[2024-03-29] MEDS: TYLENOL/FEVERALL 650 MG RECTAL ×3 (00:32→11:36)
[2024-03-29 08:00] VITALS: BP 94/48
[2024-03-29] MEDS: ATIVAN 2 MG IV ×4 (10:34→21:54)
[2024-03-29] MEDS: PROSCAR PO (10:40)
--- NOTE | 2024-03-29 11:28 | W.PN.HOSP.TC ---
Today's Communication/Plan
-
comfort measures
Assessment / Plan
Assessment / Plan
HPI: 83-year-old male past medical history of aortic valve replacement 7 years ago, dementia, hypertension, hypercholesterolemia, p/w weakness, worsening confusion, incontinence and inability to urinate. History was obtained from daughter because
patient has severe dementia.
Patient was complaining of abdominal pain and has had decreased urinary output.
Patient was previously living in [place] with a visiting nurse but due to worsening cognitive decline, he has come to live with his daughter here. Daughter is considering hospice and placement to nursing homes.
He had blood work this past December which showed elevated creatinine.
Patient does see an outpatient urologist yearly for erectile dysfunction although daughter does not know any further details. No history of kidney stones.
Patient was drinking alcohol most days but he has not had any alcohol to drink in 1 week. No smoking or drug use.
A/P:
# Severe Dementia with agitation
Pt is awake but not orientated
Continue CLINICAL ASST Seroquel HS, CLINICAL ASST Ativan PRN
IM Haldol PRN for severe agitation (daughter prefers Haldol over Ativan)
soft restraints as needed
Transition to comfort measures-required multiple IV morphine prn and transitioned to morphine gtt. Family agreed
# Postobstructive DIANN with hematuria secondary to severe bladder outlet obstruction from BPH
# Uremic encephalopathy
Cont Jasso which was placed on admission
SCr improved from 10.4 on admission to 0.9 today; baseline SCr 1.3 from November 2023
cont to monitor SCr
s/p IV fluid
Added Flomax , Proscar
Urinalysis not suggesting UTI
CT abdomen pelvis report as above
For now, would highly recc pt to keep jasso (family has concern that pt would not be able to keep jasso due to his severe dementia).
GOC discussed and daughter has decided to transition to hospice if possible.
Discussed with daughter about need for Jasso catheter placement if patient with severe suprapubic discomfort is high risk for severe bladder distention with concern for bladder rupture. Daughter states will discuss among sibling however current
moment does not want Jasso catheter to be placed back.
# Hypomagnesemia
# History of aortic valve replacement
# Essential hypertension
# Hypercholesterolemia
DNR/DNI
DVT prophylaxis�none as comfort
Regular diet
Extensive discussion held with patient and daughter at bedside. Daughter wants Jasso catheter to be removed for comfort measures and pain control as patient states of severe discomfort of penile pain. Daughter understand the poor prognosis with
removal of Jasso catheter leading to increase in serum creatinine and eventually further worsening of renal failure leading to uremia, worsening of confusion as already with history of dementia agitation and eventual . Daughter wants patient
to be transition to comfort measures and wants to talk to hospice as she was a transition patient to hospice.
d/w with daughter and other family member at bedside on daily basis.
Transitioned to comfort measures.
Anticipated Discharge: > 48 hours
Subjective/Interval History
-
Date of Service: March 29, 2024
daughter states pt apnea at times
Objective Data
-
Vital Signs:
Vital Signs
Temp Pulse Resp BP Pulse Ox
99.2 F 84 12 94/48 98
03/29/24 08:00 03/29/24 08:00 03/29/24 08:00 03/29/24 08:00 03/29/24 08:00
I&O
03/28/24 03/29/24 03/30/24
06:59 06:59 06:59
Intake Total
Balance
Physical Exam
-
General: Comfortable; Negative Respiratory Distress
HEENT: Nose Appears Normal and Ears Appear Normal; Negative Oxygen
Respiratory: Non Labored Respirations; Negative Accessory Resp Muscle Use
GI: Nondistended
Skin: Warm and Dry
Psych: Calm and Apparent Dementia
[2024-03-29] MEDS: SEROQUEL PO (14:39)
--- NOTE | 2024-03-29 17:10 | HOSPNOTE ---
Hospice has been following patient throughout hospital stay. Family has declined for bladder scanning and jasso placement for urinary retention despite explanation that it is a form of comfort. This refusal does not align with the hospice
philosophy. Andra Lockett RN met with the family today at their request and after discussion they allowed patient to be bladder scanned and straight cath for over 800 ml of urine. Education given that this will allow patient to relax and peacefully
pass. Patient is on a morphine drip step 2 and is unresponsive and actively dying. There are no unmanageable symptoms that would make patient GIP appropriate at this time. does appear to be imminent as well. Dr. Hernandez is in agreement to keep
patient on comfort measures. Hospice will continue to be available for support to the patient and their family as they need.
[2024-03-29 19:31] VITALS: BP 83/52
[2024-03-29] MEDS: NSS (PRESERVATIVE FREE) 1 ML IV (21:55)
[2024-03-30] MEDS: TYLENOL/FEVERALL 650 MG RECTAL (00:54)
[2024-03-30] MEDS: MORPHINE SULFATE 2 MG IV ×5 (01:59→12:40)
[2024-03-30] MEDS: ROBINUL 0.2 MG IV ×3 (02:01→16:24)
[2024-03-30 07:00] VITALS: BP 99/46
[2024-03-30] MEDS: PROSCAR PO (08:11)
--- NOTE | 2024-03-30 11:04 | W.PN.HOSP.TC ---
Today's Communication/Plan
-
comfort measures
prn straight cath
Assessment / Plan
Assessment / Plan
HPI: 83-year-old male past medical history of aortic valve replacement 7 years ago, dementia, hypertension, hypercholesterolemia, p/w weakness, worsening confusion, incontinence and inability to urinate. History was obtained from daughter because
patient has severe dementia.
Patient was complaining of abdominal pain and has had decreased urinary output.
Patient was previously living in [place] with a visiting nurse but due to worsening cognitive decline, he has come to live with his daughter here. Daughter is considering hospice and placement to nursing homes.
He had blood work this past December which showed elevated creatinine.
Patient does see an outpatient urologist yearly for erectile dysfunction although daughter does not know any further details. No history of kidney stones.
Patient was drinking alcohol most days but he has not had any alcohol to drink in 1 week. No smoking or drug use.
A/P:
# Severe Dementia with agitation
Pt is awake but not orientated
Continue COSTUME SHOP COORDINATOR Seroquel HS, COSTUME SHOP COORDINATOR Ativan PRN
IM Haldol PRN for severe agitation (daughter prefers Haldol over Ativan)
soft restraints as needed
Transition to comfort measures-required multiple IV morphine prn and transitioned to morphine gtt. Family agreed
# Postobstructive DIANN with hematuria secondary to severe bladder outlet obstruction from BPH
# Uremic encephalopathy
Cont Jasso which was placed on admission
SCr improved from 10.4 on admission to 0.9 today; baseline SCr 1.3 from November 2023
cont to monitor SCr
s/p IV fluid
Added Flomax , Proscar
Urinalysis not suggesting UTI
CT abdomen pelvis report as above
For now, would highly recc pt to keep jasso (family has concern that pt would not be able to keep jasso due to his severe dementia).
GOC discussed and daughter has decided to transition to hospice if possible.
family agreed for prn straight cath
# Hypomagnesemia
# History of aortic valve replacement
# Essential hypertension
# Hypercholesterolemia
DNR/DNI
DVT prophylaxis�none as comfort
Regular diet
Extensive discussion held with patient and daughter at bedside. Daughter wants Jasso catheter to be removed for comfort measures and pain control as patient states of severe discomfort of penile pain. Daughter understand the poor prognosis with
removal of Jasso catheter leading to increase in serum creatinine and eventually further worsening of renal failure leading to uremia, worsening of confusion as already with history of dementia agitation and eventual . Daughter wants patient
to be transition to comfort measures and wants to talk to hospice as she was a transition patient to hospice.
Transitioned to comfort measures.
Anticipated Discharge: > 48 hours
Subjective/Interval History
-
Date of Service: March 30, 2024
Remains comfortable on morphine infusion
Objective Data
-
Vital Signs:
Vital Signs
Temp Pulse Resp BP Pulse Ox
98.2 F 85 12 99/46 88
03/30/24 08:42 03/30/24 07:00 03/30/24 07:00 03/30/24 07:00 03/30/24 08:42
I&O
03/29/24 03/30/24 03/31/24
06:59 06:59 06:59
Intake Total
Output Total 2249 / 225
Balance -2227 / -2227
Physical Exam
-
General: Comfortable; Negative Respiratory Distress
HEENT: Nose Appears Normal and Ears Appear Normal; Negative Oxygen
Respiratory: Non Labored Respirations; Negative Accessory Resp Muscle Use
GI: Nondistended
Skin: Warm and Dry
Psych: Calm and Apparent Dementia
[2024-03-30] MEDS: MORPHINE SULFATE 4 MG IV ×3 (13:21→18:17)
--- NOTE | 2024-03-30 16:24 | CHAP ---
Paged for Eh and family, as Eh is on comfort care. Daughters Rachel and Jes Pollock were present, along with a granddaughter, and they shared background about Eh. Emotional and spiritual support provided. Prayers offered, commending Eh to
God. Family assured of our on-going support.
--- NOTE | 2024-03-30 16:48 | PTCARENOTE ---
Assumed care of pt from previous nurse. Pt with non-verbal expression of pain managed with end of life morphine titration scale, see MAR. Pt appears comfortable at this time. Pt family at bedside. pt call ugalde is within reach, pt unable to ring,
rounding in place. will cont to monitor.
--- NOTE | 2024-03-30 18:47 | W.PN.DEATH ---
Pronouncement of
-
Called to see patient to pronounce.
No spontaneous heart tones or respirations noted.
Patient not responsive to verbal stimuli.
Patient is pronounced .
Condolences were given to family at bedside
Time of : 18:41
Date of : 03/30/24
Cause of : dementia, neel
Family Notified: Yes
--- NOTE | 2024-03-30 19:58 | PTCARENOTE ---
Pt on comfort measures, note to have absent respirations and pulse, daughter and grand-daughter at bedside. Listened to pt's pulse for a full minute, none noted. Dr. Mckayla Hernandez contacted to pronounce pt. Pt pronounced at [id number]. [facility] contacted,
pt is not a candidate. Family at bedside spending time with pt.
--- NOTE | 2024-03-31 12:23 | W.DCSUMMARY ---
Discharge Summary
Discharge Data
Date of Admission: 03/22/24
Date of Discharge: 03/31/24
-
Pending Results: No
Hospital Course
83-year-old male past medical history of aortic valve replacement 7 years ago, dementia, hypertension, hypercholesterolemia, p/w weakness, worsening confusion, incontinence and inability to urinate. Patient was previously living in [place] with a
visiting nurse but due to worsening cognitive decline, he has come to live with his daughter here. Daughter is considering hospice and placement to nursing homes. blood work this past December which showed elevated creatinine. Patient does see an
outpatient urologist yearly for erectile dysfunction although daughter does not know any further details. Patient was drinking alcohol most days but he has not had any alcohol to drink in [address] abdomen pelvis on admission
which showed Mild to moderate prominence of the calyces, renal pelves, and ureters bilaterally, with no evidence for ureteral calculus. This may possibly be due to the enlarged prostate gland, and could be a chronic finding.Cholelithiasis. No CT
findings to suggest acute cholecystitis. Mild fatty infiltration of the liver. Mild splenomegaly. 8 mm mass arising in the left adrenal gland, most likely an adenoma. In an 83-year-old, no further imaging follow-up is felt to be needed. Of note,
imaging studies do not address the functional status of an adrenal mass. If there are clinical signs or symptoms of adrenal hyperfunction, biochemical testing may be required to determine if the lesion is excreting excess hormone. Upon admission
patient had a creatinine of 10.4. Urology was consulted Farooq catheter was placed. Patient with improvement in creatinine and renal function. Patient remained with agitation and dementia. Patient required restraints. Daughter insisted that
patient is agitated due to his Farooq catheter and requested to be removed. They understand that with removal of Farooq catheter patient creatinine will Rise and that high likelihood patient will . They understood and therefore removal of
Farooq catheter patient is a high likelihood of developing acute kidney injury/renal failure and if creatinine continues to rise which may lead to additional metabolic disturbances and cardiac arrest and . Hospice was consulted and patient did
not qualify for inpatient hospice. Daughters stated as patient with declining overall mentation with dementia, acute kidney injury to transition patient to comfort measures and hospice if he qualifies. Patient was started on comfort measures with
morphine as needed. Patient required multiple pushes and was transitioned to morphine infusion which daughter agreed. Also agreed for Ativan for severe agitations. Patient on 03/30/2024 at 6:41 PM on on comfort measures.
Discharge Plan
-
Patient Disposition:
Date/Time
Date/Time: 03/30/24 19:00
Discharge Date and Time
Discharge Date/Time: 03/30/24 19:00
Print Language: TRINIDADIAN
== END 2024-03-30 19:00 | disposition expired | DRG 683 ==
LOC: 4 WEST ACU 20:10
PROVIDERS: Internal Medicine; ADMITTING PHYSICIAN Hospitalist; ATTENDING PHYSICIAN Hospitalist; CONSULT PHYSICIAN Specialist; EMERGENCY PHYSICIAN Emergency Medicine
DX: N17.9 Acute kidney failure, unspecified (principal); F03.911 Unspecified dementia, unspecified severity, with agitation; G93.49 Other encephalopathy; Z51.5 Encounter for palliative care; Z66 Do not resuscitate; I10 Essential (primary) hypertension; K80.20 Calculus of gallbladder without cholecystitis without obstruction; N32.0 Bladder-neck obstruction; Z78.1 Physical restraint status
CPT/HCPCS: 51702; 51798; 74176; 80048; 80053; 81003; 81015; 83690; 83735; 85025; 85027; 93005; 99285